=== PATIENT | female | born 1965 | race African-American/Black ===

== ENCOUNTER 2018-04-08 10:35 | Emergency (ER) | payer SELFPAY ==
[~2018-04-08 10:35] MED LIST: ISOVUE-370 76%-LOCM 1 ML ONE
[2018-04-08 11:38] LABS: Bilirubin Negative (Negative); Blood, Urine Negative (Negative); Clarity CLEAR (Clear); Glucose, Urine (Dipstick) Negative (Negative); Leukocyte Negative (Negative); Nitrite Negative (Negative); Protein, Urine (Dipstick) Negative (Neg-Trace); Specific Gravity, Urine 1.003 (1.002-1.036)
[2018-04-08 12:37] LABS: ALT (SGPT) 71 U/L (8-55); AST (SGOT) 244 U/L (5-34); Albumin 3.6 g/dL (3.5-5.0); Alkaline Phosphatase 252 U/L (40-150); Anion Gap 17 mmol/L (10-20); BUN (Urea Nitrogen) 8 mg/dL (9.8-20.1); Bilirubin, Total 1.9 mg/dL (0.2-1.2); Calc. Creatinine Clearance 0 mL/min (70-130); Calcium 9.1 mg/dL (7.8-10.44); Carbon Dioxide 20 mmol/L (22-29); Chloride 102 mmol/L (98-107); Estimated GFR-MDRD 84; Glucose 167 mg/dL (70-105); Lipase 53 U/L (8-78); Potassium 4.4 mmol/L (3.5-5.1); Protein, Total 8.6 g/dL (6.0-8.3); Sodium 135 mmol/L (136-145)
[2018-04-08 12:40] LABS: #Basophils 0.1 thou/uL (0.0-0.2); #Eosinphils 0.2 thou/uL (0.0-0.7); #Lymphocytes 4.1 thou/uL (1.20-3.40); #Monocytes 1.3 thou/uL (0.11-0.59); #Neutrophils 6.9 thou/uL (1.40-6.50); %Basophils 0.5 % (0.0-1.0); %Eosinophils 1.2 % (0.0-10.0); %Lymphocytes 32.5 % (21.0-51.0); %Monocytes 10.6 % (0.0-10.0); %Neutrophils 55.1 % (42.0-75.0); Band 2 % (5-11); Eosinophils 1 % (0-10); Hemoglobin 11.5 g/dL (12.0-16.0); Hypochromia SLIGHT = 6-15 cells (100X) (0-5/hpf); Lymphocytes 36 % (21-51); MDiff Complete? YES; Macrocytosis MODERATE=16-30 cells (100X) (0-5/hpf); Mean Corpuscular HGB CONC 31.6 g/dL (32.0-36.0); Mean Corpuscular Hemoglobin 32.4 pg (27.0-31.0); Mean Platelet Volume 8.7 fL (7.4-10.4); Monocytes 5 % (0-10); Neutrophil 56 % (42-75); Platelet Count 181 thou/uL (130-400); Platelet Morphology Comment Appears Adequate; Polychromasia SLIGHT = 2-3 cells (100X) (0-2/hpf); Red Blood Cell (RBC) Count 3.55 mill/uL (4.20-5.40); Target Cells MODERATE= 6-15 cells (100X) (0-1/hpf); White Blood Cell (WBC) Count 12.5 thou/uL (4.8-10.8)
--- NOTE | 2018-04-08 13:12 | CT ---
CT ABDOMEN AND PELVIS: 04/08/2018 HISTORY: Abdominal mass for one month. COMPARISON: None. TECHNIQUE: Axial CT imaging is obtained at 5 mm intervals, from the lung base through the pubic symphysis with I V contrast. Coronal reformatted imaging obtained. FINDINGS: The imaged lung bases are unremarkable. No free intraperitoneal air or fluid is seen. The hepatic parenchyma is abnormal, demonstrating diffuse heterogeneity, as well as diffuse hypodensi ty, suggesting extensive steatosis. The liver is also markedly enlarged, measuring 25 cm in cranioca udal dimension, 20.4 cm in AP dimension, and 22 cm in transverse dimension. The peripheral contour o f the liver is mildly irregular, which may signify cirrhotic change. The anterior peripheral contour of the hepatic parenchyma, near the gallbladder fossa, is irregular. No discrete mass lesion is see n, but evaluation is limited on this exam. The gallbladder is grossly unremarkable. The spleen is normal in size. The pancreas, adrenal glands , and kidneys are unremarkable. There is a lobulated hypoechoic and isoechoic pelvic mass along the superior aspect of the urinary bl adder, which is inseparable from the posterior aspect of the uterine body/fundus, suggesting an irreg ular lobulated and enlarged fibroid uterus, measuring at least 7.9 cm in transverse dimension and 8.5 cm in AP dimension. A follow-up HYDRAULIC ENGINEER consultation is advised. There is stool within a slightly expa nded rectum, with no evidence for bowel inflammatory change or bowel obstruction. The appendix appea rs unremarkable. Vascular structures of the abdomen/pelvis demonstrate atherosclerotic calcification of the infrarenal abdominal aorta. No lymphadenopathy noted within the abdomen or pelvis. Review of the osseous structures demonstrates lower lumbar spine facet hypertrophic change with no wo rrisome lytic or blastic bone lesion. IMPRESSION: 1. The liver is enlarged and demonstrates diffuse heterogeneity and decreased attenuation, suggestin g steatosis. The peripheral contour of the liver is irregular. Findings suggest cirrhotic change. This limits assessment for focal liver lesion and, given this fact, as well as irregularity involving the anterior aspect of the liver, in the gallbladder fossa region, a follow-up MRI of the abdomen wi th and without contrast, using a hepatic mass protocol, is advised. 2. Pelvic mass, inseparable from the posterior aspect of the uterine body/fundus, suggesting a promi nent fibroid uterus. A follow-up gynecology consultation is advised. CODE T POS: CLEO
[2018-04-08 13:41] LABS: INR-International Normal Ratio 1.2; PTT 37.7 SEC (22.9-36.1); Prothrombin Time 15.5 SEC (12.0-14.7)
== END 2018-04-08 13:51 | disposition home or self-care (01) ==
LOC: ERS 10:35
DX: R16.0 Hepatomegaly, not elsewhere classified (principal); F10.10 Alcohol abuse, uncomplicated; D25.9 Leiomyoma of uterus, unspecified
CPT/HCPCS: 74177; 80053; 81003; 83690; 85025; 85610; 85730; Q9966

== ENCOUNTER 2019-03-08 11:39 | Outpatient (CLI) | payer OTHER ==
--- NOTE | 2019-04-06 14:38 | MMO ---
Bilateral MAMMO Bilat Screen DDI. CLINICAL HISTORY: Patient is 54 years old and is seen for screening. The patient has no family history of breast cancer. The patient has no personal history of cancer. The patient has a history of left Excisional Biopsy in 2003 - benign. VIEWS: The views performed were: bilateral craniocaudal and bilateral mediolateral oblique. FILMS COMPARED: The present examination has been compared to prior imaging studies performed at [facility] on 04/17/2011 and 12/19/2016. This study has been interpreted with the assistance of computer-aided detection. MAMMOGRAM FINDINGS: The breasts are heterogeneously dense, which could obscure a lesion on mammography. Asymmetric density inner lower right breast. In the left breast, there are no suspicious masses, calcifications or areas of architectural distortion. IMPRESSION: FINDING IN THE RIGHT BREAST REQUIRES ADDITIONAL EVALUATION. ADDITIONAL IMAGING. ACR BI-RADS Category 0 - Incomplete: Need additional imaging evaluation. [facility] will notify the patient of the need for additional imaging services. MAMMOGRAPHY NOTE: 1. A negative mammogram report should not delay a biopsy if a dominant of clinically suspicious mass is present. 2. Approximately 10% to 15% of breast cancers are not detected by mammography. 3. Adenosis and dense breasts may obscure an underlying neoplasm. Reported by: SANJUANITA BLACK MD Electonically Signed: [id number]
== END 2019-03-08 11:40 | disposition home or self-care (01) ==
LOC: BICMAMMO 11:39
PROVIDERS: ATTEND Family Medicine
DX: Z12.31 Encounter for screening mammogram for malignant neoplasm of breast (principal); Z91.89 Other specified personal risk factors, not elsewhere classified
CPT/HCPCS: 77067

== ENCOUNTER 2019-04-22 14:25 | Outpatient (CLI) | payer OTHER ==
--- NOTE | 2019-04-22 14:56 | MMO ---
Right Breast MAMMO Unilat Diag DDI RT+LORENA. CLINICAL HISTORY: Patient is 54 years old and is seen for additional evaluation requested from prior study. The patient has no family history of breast cancer. The patient has no personal history of cancer. The patient has a history of left Excisional Biopsy in 2003 - benign. VIEWS: The views performed were: right craniocaudal spot compression with tomosynthesis; right mediolateral oblique spot compression with tomosynthesis; and right mediolateral with tomosynthesis. FILMS COMPARED: The present examination has been compared to prior imaging studies performed at [facility] on 03/08/2019 and 04/22/2019, and at [facility] on 04/17/2011 and 12/19/2016. This study has been interpreted with the assistance of computer-aided detection. MAMMOGRAM FINDINGS: The breast is heterogeneously dense, which could obscure a lesion on mammography. Additional views were performed. Mass is seen at 3:00 which is solid on US and should be biopsied. IMPRESSION: FINDING IN THE RIGHT BREAST IS SUSPICIOUS. AN ULTRASOUND-GUIDED BREAST BIOPSY IS RECOMMENDED. THE RESULTS OF THIS EXAM WERE SENT TO THE PATIENT. ACR BI-RADS Category 4 - Suspicious abnormality - biopsy should be considered S/W pt in person @ 1454 hrs. MAMMOGRAPHY NOTE: 1. A negative mammogram report should not delay a biopsy if a dominant of clinically suspicious mass is present. 2. Approximately 10% to 15% of breast cancers are not detected by mammography. 3. Adenosis and dense breasts may obscure an underlying neoplasm. Reported by: LINSEY SAHU MD Electonically Signed: [id number]
--- NOTE | 2019-04-22 15:37 | ULT ---
RIGHT BREAST ULTRASOUND: HISTORY: Abnormal mammogram. FINDINGS: Correlation is made with the mammograms of today and 03/08/2019. Sonographic evaluation of the right lower inner breast demonstrates a well circumscribed nonshadowing solid mass at the 3 o'clock position, 2 cm from the nipple and measuring 3 x 1.5 x 0.5 cm. IMPRESSION: BIRADS category 4 - suspicious abnormality. Ultrasound-guided biopsy is recommended. Discussed in person with the patient at 2:54 p.m. VALENTE REYNOLDS
== END 2019-04-22 14:26 | disposition home or self-care (01) ==
LOC: BICMAMMO 14:25
PROVIDERS: ATTEND Family Medicine
DX: R92.2 Inconclusive mammogram (principal)
CPT/HCPCS: G0279

== ENCOUNTER → 2019-05-24 | Day surgery (SDC) | payer OTHER ==
--- NOTE | 2019-05-24 13:23 | MMO ---
Right Breast MAMMO Unilat Diag DDI RT. CLINICAL HISTORY: Patient is 54 years old and is seen for diagnostic exam. The patient has a history of left Excisional Biopsy in 2002 - benign. VIEWS: The views performed were: . FILMS COMPARED: The present examination has been compared to prior imaging studies performed at [facility] on 03/08/2019 and 04/22/2019, and at [facility] on 12/19/2016. This study has been interpreted with the assistance of computer-aided detection. MAMMOGRAM FINDINGS: The breast is heterogeneously dense, which could obscure a lesion on mammography. Biopsy marker noted at site of mammogram mass. IMPRESSION: FINDING IN THE RIGHT BREAST IS SUSPICIOUS. BIOPSY IS RECOMMENDED. THE RESULTS OF THIS EXAM WERE SENT TO THE PATIENT. ACR BI-RADS Category 4 - Suspicious abnormality - biopsy should be considered MAMMOGRAPHY NOTE: 1. A negative mammogram report should not delay a biopsy if a dominant of clinically suspicious mass is present. 2. Approximately 10% to 15% of breast cancers are not detected by mammography. 3. Adenosis and dense breasts may obscure an underlying neoplasm. Reported by: SANJUANITA BLACK MD Electonically Signed: [id number]
--- NOTE | 2019-05-25 07:08 | ULT ---
PROCEDURE: 1. Ultrasound-guided core biopsy mass right breast. 2. Ultrasound-guided biopsy marker placement at biopsy site. 3. Postprocedure mammogram right breast. INDICATION: Right breast mass that had been previously identified on mammogram and ultrasound at 3 o'clock right breast. Patient presents for ultrasound-guided biopsy of this mass. FINDINGS: 1. The irregularly shaped hypoechoic lobulated mass at 3 o'clock right breast was again identified o n ultrasound. Maximum measurement of approximately 2.7 cm. This mass is biopsied using ultrasound g uidavickie with six 14 gauge core biopsies specimens obtained using a bard biopsy instrument. Specimens were placed in formalin. 2. Biopsy marker was placed at biopsy site using ultrasound guidance. 3. Postprocedure mammogram confirms biopsy marker at the mammographic mass. PROCEDURE NOTE: The right breast is prepped and draped in a sterile manner. The mass at 3 o'clock right breast was a gain identified on ultrasound. Local anesthesia was administered with Lidocaine under ultrasound farzana dance. A tiny skin incision was made inferiorly. An inferior approach was selected. The bard biops y instrument with guide needle in place was introduced under ultrasound guidance from an inferior mahin reich. The tip of the needle was advanced to the leading edge of the mass. A prefire image was obta ined. A post-fire image confirmed biopsy through the mid portion of the mass. This was repeated for 6 core biopsy specimens. Each specimen was placed in formalin. Biopsy marker was placed at the biopsy site with ultrasound guidance. The patient tolerated the proc edure well and was sent for postprocedure mammogram.
== END ==
LOC: BICULT 12:43
PROVIDERS: ATTEND Family Medicine
PROC: 0H9T3ZX Drainage of Right Breast, Percutaneous Approach, Diagnostic (ICD-10-PCS; principal; 2019-05-24)
DX: D24.1 Benign neoplasm of right breast (principal)
CPT/HCPCS: 19083; 88305

== ENCOUNTER 2021-06-25 20:02 | Emergency (ER) | payer SELFPAY ==
[2021-06-25 20:50] LABS: ALT (SGPT) 87 U/L (8-55); AST (SGOT) 247 U/L (5-34); Albumin 3.5 g/dL (3.5-5.0); Alkaline Phosphatase 142 U/L (40-110); Anion Gap 21 mmol/L (10-20); BUN (Urea Nitrogen) 10 mg/dL (9.8-20.1); Bilirubin, Total 1.3 mg/dL (0.2-1.2); Calc. Creatinine Clearance 0 mL/min (70-130); Calcium 8.6 mg/dL (7.8-10.44); Carbon Dioxide 17 mmol/L (22-29); Chloride 102 mmol/L (98-107); Globulin 4.1 g/dL (2.4-3.5); Glucose 133 mg/dL (70-105); Potassium 3.9 mmol/L (3.5-5.1); Protein, Total 7.6 g/dL (6.0-8.3); Sodium 136 mmol/L (136-145)
[2021-06-25 21:10] LABS: Eosinophils 1 % (0-10); Hemoglobin 10.9 g/dL (12.0-16.0); Lymphocytes 40 % (21-51); MDiff Complete? YES; Macrocytosis SLIGHT = 6-15 cells (100X) (0-5/hpf); Mean Corpuscular HGB CONC 32.6 g/dL (32.0-36.0); Mean Corpuscular Hemoglobin 33.9 pg (27.0-31.0); Mean Platelet Volume 7.8 fL (7.4-10.4); Monocytes 13 % (0-10); Neutrophil 45 % (42-75); Platelet Count 155 thou/uL (130-400); RBC Distribution Width 12.8 % (11.5-14.5); Red Blood Cell (RBC) Count 3.21 mill/uL (4.20-5.40); White Blood Cell (WBC) Count 7.7 thou/uL (4.8-10.8)
== END 2021-06-25 22:42 | disposition home or self-care (01) ==
LOC: ERS 20:02
DX: R55 Syncope and collapse (principal); R74.01 Elevation of levels of liver transaminase levels
CPT/HCPCS: 36415; 71045; 80053; 84484; 85025; 93005